=== PATIENT | female | born 1980 | race Caucasian/White ===

== ENCOUNTER 2023-10-10 11:10 | Outpatient (CLI) | payer OTHER, SELFPAY | END 2023-10-10 11:11 | disposition home or self-care (01) | PROVIDERS: PCP Family Medicine; Visit Provider Nurse Practitioner Family | DX: R19.7 Diarrhea, unspecified (principal) | CPT/HCPCS: 87077 ==

== ENCOUNTER 2023-10-11 07:45 | Outpatient (CLI) | payer OTHER, SELFPAY | END 2023-10-11 07:46 | disposition home or self-care (01) | LOC: NFLDREF 11-01 12:25 | PROVIDERS: PCP Family Medicine; Referring Provider Family Medicine; Visit Provider Nurse Practitioner Family | DX: R19.7 Diarrhea, unspecified (principal) | CPT/HCPCS: 87045; 87046; 87177; 87209; 87427 ==